=== PATIENT | female | born 1990 | race Caucasian/White ===

== ENCOUNTER 2018-12-02 20:10 | Emergency (ER) | payer OTHER ==
[2018-12-02] MEDS ORDERED: Sodium Chloride 0.9% 2.5 ML Syringe FLUSH PRN (20:36)
[2018-12-02] MEDS ORDERED: Sodium Chloride 0.9% 10 ML Syringe FLUSH PRN (20:36)
--- NOTE | 2018-12-02 20:36 | EDM.PDOC ---
<Luis Miguel Pendleton - Last Filed: 12/02/18 23:29> ED HPI GENERAL MEDICAL PROBLEM - General Chief Complaint: Abdominal Pain Stated Complaint: STOMACH PAIN Time Seen by Provider: 12/02/18 20:47 Source of Information: Reports: Patient History Limitations: Reports: No Limitations - History of Present Illness INITIAL COMMENTS - FREE TEXT/NARRATIVE: HISTORY AND PHYSICAL: History of present illness: Patient is a 28-year-old female presents to the ED with complaint of RLQ pain x 1 hour. She has had some vomiting since the pain started and is feeling a little nauseous now. Denies fevers, chills, diarrhea, chest pain, SOB. History of tubal ligation and hysterectomy. Denies significant past medical history. Denies alcohol, tobacco, or illicit drug use. Review of systems: As per history of present illness and below otherwise all systems reviewed and negative. Past medical history: As per history of present illness and as reviewed below otherwise noncontributory. Surgical history: As per history of present illness and as reviewed below otherwise noncontributory. Social history: No reported history of drug or alcohol abuse. Family history: As per history of present illness and as reviewed below otherwise noncontributory. Physical exam: General: Patient sitting comfortably in no acute distress and nontoxic appearing HEENT: Atraumatic, normocephalic, pupils reactive, negative for conjunctival pallor or scleral icterus, mucous membranes moist, throat clear, neck supple, nontender, trachea midline. No meningeal signs. Lungs: Clear to auscultation, breath sounds equal bilaterally, chest nontender. Heart: S1S2, regular, negative for clicks, rubs, or overt murmur. Abdomen: Soft, nondistended. Pain to palpation to right lower quadrant, positive rebound and Rovsing sign. No rigidity noted. Negative for masses or hepatosplenomegaly. Negative for costovertebral tenderness. Pelvis: Stable nontender. Genitourinary: Deferred. Rectal: Deferred. Extremities: Atraumatic, negative for cords or calf pain. Neurovascular unremarkable. Neuro: Awake, alert, oriented. Cranial nerves II through XII unremarkable. Cerebellum unremarkable. Motor and sensory unremarkable throughout. Exam nonfocal. Notes: Diagnostics: CBC, CMP, lipase, UA, CT abdomen/pelvis w/ contrast, pelvic US Therapeutics: 1L NS IV Prescriptions: Impression: [] Plan: [] Definitive disposition and diagnosis as appropriate pending reevaluation and review of above. Right Lower Abdomen Pain Score (Numeric/FACES): 3 - Related Data Allergies Allergy/AdvReac Type Severity Reaction Status Date / Time No Known Allergies Allergy Verified 12/02/18 20:25 Home Meds: Home Meds . [No Known Home Meds] 12/02/18 [History] Past Medical History - Past Health History Medical/Surgical History: Denies Medical/Surgical History SERVICES REP History: Reports: - Past Surgical History HEENT Surgical History: Reports: Adenoidectomy, Tonsillectomy Female Surgical History: Reports: Hysterectomy Social & Family History - Family History Family Medical History: Noncontributory - Tobacco Use Smoking Status *Q: Never Smoker - Recreational Drug Use Recreational Drug Use: No ED ROS GENERAL - Review of Systems Review Of Systems: ROS reveals no pertinent complaints other than HPI. ED EXAM, GI/ABD - Physical Exam Exam: See Below (see dictation) Course - Vital Signs Last Recorded V/S: Last Vital Signs Temp 36.6 C 12/02/18 20:23 Pulse 88 12/02/18 22:03 Resp 18 12/02/18 22:03 BP 103/70 12/02/18 22:03 Pulse Ox 97 12/02/18 22:03 - Orders/Labs/Meds Orders: Active Orders 24 hr Category Date Time Status Sodium Chloride 0.9% [Saline Flush] Med 12/02/18 20:36 Active 10 ml FLUSH ASDIRECTED PRN Sodium Chloride 0.9% [Saline Flush] Med 12/02/18 20:36 Active 2.5 ml FLUSH ASDIRECTED PRN Saline Lock Insert [OM.PC] Stat Oth 12/02/18 20:36 Ordered Medication Orders Sodium Chloride (Saline Flush) 10 ml FLUSH ASDIRECTED PRN PRN Reason: Keep Vein Open Last Admin: 12/02/18 20:56 Dose: 10 ml Sodium Chloride (Saline Flush) 2.5 ml FLUSH ASDIRECTED PRN PRN Reason: Keep Vein Open Last Admin: 12/02/18 20:56 Dose: 2.5 ml Labs: Laboratory Tests 12/02/18 12/02/18 12/02/18 Range/Units 20:50 20:50 21:45 WBC 8.31 (4.0-11.0) K/uL RBC 4.31 (4.30-5.90) M/uL Hgb 12.8 (12.0-16.0) g/dL Hct 37.4 (36.0-46.0) % MCV 86.8 (80.0-98.0) fL MCH 29.7 (27.0-32.0) pg MCHC 34.2 (31.0-37.0) g/dL RDW Std Deviation 40.8 (28.0-62.0) fl RDW Coeff of Esther 13 (11.0-15.0) % Plt Count 201 (150-400) K/uL MPV 9.20 (7.40-12.00) fL Neut % (Auto) 57.7 (48.0-80.0) % Lymph % (Auto) 34.9 (16.0-40.0) % [place] % (Auto) 5.2 (0.0-15.0) % Eos % (Auto) 1.6 (0.0-7.0) % Baso % (Auto) 0.6 (0.0-1.5) % Neut # (Auto) 4.8 (1.4-5.7) K/uL Lymph # (Auto) 2.9 H (0.6-2.4) K/uL [place] # (Auto) 0.4 (0.0-0.8) K/uL Eos # (Auto) 0.1 (0.0-0.7) K/uL Baso # (Auto) 0.1 (0.0-0.1) K/uL Nucleated RBC % 0.0 /100WBC Nucleated RBCs # 0 K/uL Sodium 140 (136-145) mmol/L Potassium 3.6 (3.5-5.1) mmol/L Chloride 105 (98-107) mmol/L Carbon Dioxide 25.4 (21.0-32.0) mmol/L BUN 7 (7.0-18.0) mg/dL Creatinine 0.8 (0.6-1.0) mg/dL Est Cr Clr Drug Dosing 73.86 mL/min Estimated GFR (MDRD) > 60.0 ml/min Glucose 98 (74-106) mg/dL Calcium 9.2 (8.5-10.1) mg/dL Total Bilirubin 0.5 (0.2-1.0) mg/dL AST 9 L (15-37) IU/L ALT 18 (14-63) IU/L Alkaline Phosphatase 65 (46-116) U/L Total Protein 6.9 (6.4-8.2) g/dL Albumin 4.0 (3.4-5.0) g/dL Globulin 2.9 (2.6-4.0) g/dL Albumin/Globulin Ratio 1.4 (0.9-1.6) Lipase 96 (73-393) U/L Urine Color YELLOW Urine Appearance CLEAR Urine pH 5.5 (5.0-8.0) Ur Specific [place] <= 1.005 (1.001-1.035) Urine Protein NEGATIVE (NEGATIVE) mg/dL Urine Glucose (UA) NEGATIVE (NEGATIVE) mg/dL Urine Ketones NEGATIVE (NEGATIVE) mg/dL Urine Occult Blood NEGATIVE (NEGATIVE) Urine Nitrite NEGATIVE (NEGATIVE) Urine Bilirubin NEGATIVE (NEGATIVE) Urine Urobilinogen 0.2 (<2.0) EU/dL Ur Leukocyte Esterase NEGATIVE (NEGATIVE) Meds: Medications Generic Name Dose Route Start Last Admin Trade Name Frecatherine PRN Reason Stop Dose Admin Sodium Chloride 10 ml 12/02/18 20:36 12/02/18 20:56 Saline Flush FLUSH 10 ml ASDIRECTED PRN Administration Keep Vein Open Sodium Chloride 2.5 ml 12/02/18 20:36 12/02/18 20:56 Saline Flush FLUSH 2.5 ml ASDIRECTED PRN Administration Keep Vein Open Discontinued Medications Generic Name Dose Route Start Last Admin Trade Name Frecatherine PRN Reason Stop Dose Admin Sodium Chloride 1,000 mls @ 999 mls/hr 12/02/18 20:56 12/02/18 21:03 Normal Saline IV 12/02/18 21:56 999 mls/hr STAT ONE Administration Iopamidol 100 ml 12/02/18 21:39 12/02/18 21:55 Isovue-370 (76%) IVPUSH 12/02/18 21:40 100 ml ONETIME ONE Administration Departure - Departure Disposition: Home, Self-Care 01 Clinical Impression: Pelvic pain, Free fluid in pelvis, Ruptured ovarian cyst - Discharge Information Referrals: PCP,None [Primary Care Provider] - Forms: ED Department Discharge Additional Instructions: The following information is given to patients seen in the emergency department who are being discharged to home. This information is to outline your options for follow-up care. We provide all patients seen in our emergency department with a follow-up referral. The need for follow-up, as well as the timing and circumstances, are variable depending upon the specifics of your emergency department visit. If you don't have a primary care physician on staff, we will provide you with a referral. We always advise you to contact your personal physician following an emergency department visit to inform them of the circumstance of the visit and for follow-up with them and/or the need for any referrals to a consulting specialist. The emergency department will also refer you to a specialist when appropriate. This referral assures that you have the opportunity for followup care with a specialist. All of these measure are taken in an effort to provide you with optimal care, which includes your followup. Under all circumstances we always encourage you to contact your private physician who remains a resource for coordinating your care. When calling for followup care, please make the office aware that this follow-up is from your recent emergency room visit. If for any reason you are refused follow-up, please contact the [facility] emergency department at and ask to speak to the emergency department charge nurse. [facility] [address] [address] Push hydration and rest and use pain medications as needed, [id number] ibuprofen or Naprosyn/Aleve and stronger meds as needed. Please call the clinic this morning and specifically tell them that Dr. Inman was told about your case and wants to follow you in the clinic. They should make an appointment for you later today, Friday, or Friday at the latest. Please call here if you have any issues getting that appointment and return to ER sooner as needed and as discussed <Alexus Nicholas - Last Filed: 12/03/18 00:33> ED HPI GENERAL MEDICAL PROBLEM - History of Present Illness INITIAL COMMENTS - FREE TEXT/NARRATIVE: This is Dr. Nicholas dictating an addendum note as I'm assuming care of this case at 12 midnight. I reviewed all the lab tests the CAT scan and the pelvic ultrasound. I discussed this case with Dr. Quinones the radiologist who read the CAT scan and she is also review the ultrasound, although she did not formally read it. She says she does not see any other source of the fluid or blood other than a likely ruptured ovarian cyst. She says it reads that way due to the medical presentation and the findings on both imaging tests. I discussed all these results with the patient and significant other at bedside. She tells me that she has had a right lower quadrant pain on and off in the past and has just had mild discomfort with it and when she pushes on it it seems to be worse. She was told in the past when she donated eggs that she had a fluid collection or cyst on that right ovary. I discussed this case at length with Dr. Sparrow [id number] and he says that he can follow this patient in the clinic as long as she is stable which she is. She has no evidence of hemodynamic instability and she is currently comfortable here in the ED and has not required any pain intervention. I have offered the patient observation admission and she says she would prefer to go home and see the doctor in the clinic. I've advised her on reasons to return area I will give her options for pain management. Impression: Right lower quadrant/pelvic abdominal pain likely secondary to free pelvic fluid probable ruptured ovarian cyst ED ROS GENERAL - Review of Systems Review Of Systems: ROS reveals no pertinent complaints other than HPI. ED EXAM, GI/ABD - Physical Exam Exam: See Below (See dictation) Departure - Departure Time of Disposition: 00:32 Condition: Good
[2018-12-02] MEDS ORDERED: Sodium Chloride 0.9% 1,000 ML IV ONE (20:56)
[2018-12-02 21:27] LABS: BLOOD UREA NITROGEN,BUN 7 mg/dL (7.0-18.0); CARBON DIOXIDE,CO2 25.4 mmol/L (21.0-32.0); CHLORIDE,CL 105 mmol/L (98-107); GLUCOSE RANDOM 98 mg/dL (74-106); LIPASE 96 U/L (73-393); POTASSIUM,K 3.6 mmol/L (3.5-5.1); SODIUM,NA 140 mmol/L (136-145)
[2018-12-02] MEDS ORDERED: Iopamidol 755 Mg/ML 100 ML Bottle IVPUSH ONE (21:39)
--- NOTE | 2018-12-02 22:56 | CT ---
INDICATION: Right lower quadrant pain TECHNIQUE: CT abdomen and pelvis acquired with 100 cc Isovue 370 IV contrast. COMPARISON: None FINDINGS: Lower chest: Unremarkable. Liver: Periportal edema may be secondary to volume resuscitation. Spleen: Unremarkable. Pancreas: Unremarkable. Gallbladder and bile ducts: Unremarkable. Adrenal glands: Unremarkable. Kidneys: Unremarkable. GI tract: Unremarkable. Appendix is normal. Vascular structures: Unremarkable. Lymph nodes: Unremarkable. Pelvic Organs: The uterus is surgically absent. Moderate amount of free fluid in the pelvis measures 26 Hounsfield units in density. Questionable fat stranding around the urinary bladder. Bones: Unremarkable for age. IMPRESSION: Normal appendix. Moderate amount of free fluid in the pelvis measures density than simple fluid. This could be hemorrhagic fluid secondary to a ruptured ovarian cyst. Questionable fat stranding around the urinary bladder. Correlate with urinalysis. Status post hysterectomy. Findings discussed with Dr. Pendleton at 10:54 p.m. on December 02, 2018. Please note that all CT scans at this facility use dose modulation, iterative reconstruction, and/or weight-based dosing when appropriate to reduce radiation dose to as low as reasonably achievable. Dictated by Suze Quinones MD @ Dec 02 2018 10:54PM Signed by Dr. Suze Quinones @ Dec 02 2018 10:54PM
--- NOTE | 2018-12-03 00:10 | US ---
INDICATION: Pelvic exam TECHNIQUE: Ultrasound pelvis transabdominal and transvaginal. Endovaginal imaging was performed to better visualize the endometrium and ovaries. Real-time herndon scale sonographic images with spectral and color Doppler imaging of the ovaries were obtained. COMPARISON: CT today FINDINGS: Uterus: The patient is status post prior hysterectomy. Right ovary: 2.3 x 1.2 cm. The right ovary is normal in appearance and echotexture. Venous blood flow is present within the right ovary. Left ovary: The left ovary cannot be visualized and is obscured by bowel gas. Cul-de-sac: A small amount of pelvic ascites is seen with low level internal echoes noted. IMPRESSION: 1. A small amount of pelvic ascites is seen with low level internal echoes noted. Findings may be due to suspected hemoperitoneum on recent CT. Dictated by Sergio Martínez MD @ 12/03/2018 12:09:10 AM Dictated by: Sergio Martínez MD @ 12/03/2018 00:09:22 (Electronically Signed)
[2018-12-03] MEDS ORDERED: Acetaminophen/HYDROcodone 325-5 MG Tab PO ONE (00:34)
[2018-12-03] MEDS ORDERED: Ketorolac 30 MG/ML SDV IVPUSH ONE (00:34)
[2018-12-03] MEDS ORDERED: Ondansetron 4 MG Tab.DIS PO ONE (00:53)
== END 2018-12-03 01:06 | disposition home or self-care (01) ==
LOC: MW.ED 20:10
DX: N83.201 Unspecified ovarian cyst, right side (principal); R18.8 Other ascites
CPT/HCPCS: 36415; 74177; 76856; 80053; 81003; 83690; 85025; 96361; 96374; 99284; A9270; J1885; J7040; Q9967